=== PATIENT | male | born 1975 | race Caucasian/White ===

== ENCOUNTER → 2022-06-29 | Outpatient (CLI) | payer BC | LOC: M PLAIMG 13:43 → EDBD 14:30 | PROVIDERS: ATTEND Psychiatry & Neurology Neurology | DX: M19.012 Primary osteoarthritis, left shoulder (principal); M48.02 Spinal stenosis, cervical region; M43.02 Spondylolysis, cervical region; M75.82 Other shoulder lesions, left shoulder; R20.2 Paresthesia of skin; M54.12 Radiculopathy, cervical region; M25.512 Pain in left shoulder; M75.102 Unspecified rotator cuff tear or rupture of left shoulder, not specified as traumatic ==

== ENCOUNTER → 2024-02-21 | Outpatient (CLI) | payer BC | LOC: M SLEEP 20:00 | PROVIDERS: ATTEND Nurse Practitioner Family | DX: G47.33 Obstructive sleep apnea (adult) (pediatric) (principal) ==